=== PATIENT | male | born 1950 | race Caucasian/White ===

== ENCOUNTER 2017-02-03 04:03 | Emergency (ER) | payer BC ==
[~2017-02-03] VITALS: Ht 172.7 cm; Wt 73.0 kg
[2017-02-03] MEDS ORDERED: ONDANSETRON HCL 4MG/2ML VIAL IV STA (05:29)
[2017-02-03] MEDS ORDERED: SODIUM CHLORIDE 0.9% 1,000 ML IV ONE (05:29)
[2017-02-03] MEDS ORDERED: MORPHINE SULFATE 4 MG/ML CPJ (NOT FOR IM USE) IV STA (05:29)
[2017-02-03] MEDS ORDERED: DEXAMETHASONE 10 MG/ML VIAL IV ONE (05:30)
[2017-02-03] MEDS ORDERED: CLINDAMYCIN 600 MG in DEXTROSE 5% WATER 50 ML IV ONE (05:30)
[2017-02-03] MEDS ORDERED: MORPHINE SULFATE 10 MG/ML CPJ IV STA (05:38)
[2017-02-03] MEDS ORDERED: MORPHINE SULFATE 10 MG/ML CPJ IV SCH (05:45)
[2017-02-03 06:03] LABS: BASOPHILS % 0.1 % (0.0-2.0); EOSINOPHILS % 0.1 % (0.0-5.0); HEMATOCRIT. 43.7 % (42.0-52.0); HEMOGLOBIN. 15.3 g/dL (14.0-18.0); LYMPHOCYTES % 9.7 % (20.0-50.0); MEAN CORPUSCULAR HEMOGLOBIN 31.7 pg (28.0-32.0); MEAN CORPUSCULAR VOLUME 90.3 fL (80.0-94.0); MEAN PLATELET VOLUME 8.7 fl (7.4-10.4); MONOCYTES % 6.8 % (2.0-8.0); NEUTROPHILS % 83.3 % (40.0-76.0); PLATELET 158 x1000/uL (130-400); RED BLOOD CELL COUNT 4.84 mill/uL (4.7-6.1); RED CELL DISTRIBUTION WIDTH 12.4 % (11.6-14.6)
[2017-02-03 06:15] LABS: CARBON DIOXIDE 27 mEq/L (21-32)
[2017-02-03] MEDS ORDERED: TETRACAINE/BENZOCAINE/BUTAMBEN 20 GM SPRAY MM ONE (06:30)
[2017-02-03] MEDS ORDERED: DIPHENHYDRAMINE 50MG/ML VIAL IV ONE (06:45)
[2017-02-03 07:21] LABS: CHLORIDE 104 mEq/L (98-107)
[2017-02-03] MEDS ORDERED: IOHEXOL-300 100 ML BOTTLE ONE (08:41)
[2017-02-03] MEDS ORDERED: VANCOMYCIN 1 G PREMIX 200 ML IV SCH (09:15)
[2017-02-03] MEDS ORDERED: GENTAMICIN 120MG PREMIX 100 ML IV SCH (09:15)
[2017-02-03 12:06] VITALS: BP 152/83
== END 2017-02-03 12:06 | disposition short-term general hospital (02) ==
LOC: ER 04:03
DX: J02.9 Acute pharyngitis, unspecified (principal); E78.00 Pure hypercholesterolemia, unspecified; Z91.013 Allergy to seafood
CPT/HCPCS: 36415; 70491; 71010; 80048; 83605; 85025; 87040; 87077; 96365; 96366; 96367; 96375; 99285; J1100; J1200; J1580; J2270; J2405; J3370; J3490; J7030; Q9967; Z7610; J7060